=== PATIENT | female | born 1980 | race Caucasian/White ===

== ENCOUNTER 2020-01-01 14:24 | Outpatient (CLI) | payer OTHER, SELFPAY ==
--- NOTE | ~2020-01-01 | XR_ITS ---
EXAMINATION: XR lumbar spine 2-3V EXAM DATE: 01/01/2020 15:01 INDICATION: Low back pain for 5 days. TECHNIQUE: Lumber spine frontal, lateral, lateral L5-S1 projections for interpretation. There is no prior study for comparison. FINDINGS: There is mild lumbar facet arthropathy. The vertebral bodies are aligned in the AP dimensio n. Vertebral body and disc heights are well-maintained. Paraspinal soft tissue is unremarkable. Sacru m, sacroiliac joints, sacral arcuate lines are intact. Possible 4 mm right nephrolithiasis. IMPRESSION: Mild lumbar facet arthropathy. Possible right nephrolithiasis. Reviewed, dictated and finalized at location A.
== END 2020-01-01 14:25 | disposition home or self-care (01) ==
LOC: ANHIMG 14:33
PROVIDERS: PCP Nurse Practitioner Adult Health; Visit Provider Nurse Practitioner Adult Health
DX: M54.5 Low back pain (principal); M12.88 Other specific arthropathies, not elsewhere classified, other specified site
CPT/HCPCS: 72100

== ENCOUNTER 2020-09-15 16:48 | Outpatient (CLI) | payer OTHER, SELFPAY ==
--- NOTE | ~2020-09-15 | MR_ITS ---
EXAMINATION: MR lumbar spine wo con DATE: 09/15/2020 17:31 INDICATION: Arthropathy of lumbar facet joint. Low back pain. TECHNIQUE: Magnetic resonance imaging (MRI) of the lumbar spine was performed without intravenous con trast. Sequences included sagittal T2-weighted FSE, sagittal T2-weighted FS FSE, sagittal T1-weighted FSE, and axial T2-weighted FSE. COMPARISON: Lumbar spine radiographs 01/01/2020 FINDINGS: Bone alignment is normal. Vertebral body heights are normal. There is mildly decreased disc height at L4-L5 with endplate remodeling. The distal spinal cord signal intensity is normal. The con us medullaris is at L1. The following disc levels are specifically discussed: L1-L2: The disc does not extend beyond the endplate margin. There is mild bilateral facet joint osteo arthritis. There is no neural foraminal stenosis. There is no central canal stenosis. L2-L3: There is a central extrusion. There is mild bilateral facet joint osteoarthritis. There is mil d bilateral neural foraminal stenosis. There is mild central canal stenosis. L3-L4: The disc is mildly bulging and has an annular fissure. There is mild bilateral facet joint ost eoarthritis. There is mild bilateral neural foraminal stenosis. There is mild central canal stenosis. L4-L5: The disc is bulging with superimposed right central extrusion with mass effect on right L5 ner ve root in right lateral recess. There is mild bilateral facet joint osteoarthritis. There is mild bi lateral neural foraminal stenosis. There is mild central canal stenosis. L5-S1: The disc is bulging and has an annular fissure. There is mild left facet joint osteoarthritis. There is mild bilateral neural foraminal stenosis. There is mild central canal stenosis. IMPRESSION: 1. Mild lumbar spondylosis. Reviewed, dictated and finalized at location A. ALS RN IMPRESSION: 1. Mild lumbar spondylosis.
== END 2020-09-15 16:49 | disposition home or self-care (01) ==
PROVIDERS: PCP Nurse Practitioner Adult Health; Visit Provider Nurse Practitioner Adult Health
DX: M47.896 Other spondylosis, lumbar region (principal)
CPT/HCPCS: 72148

== ENCOUNTER 2021-02-01 23:11 | Emergency (ER) | payer OTHER, SELFPAY ==
--- NOTE | ~2021-02-01 | CT_ITS ---
EXAMINATION: CT abdomen pelvis wo con DATE: 02/01/2021 23:57 INDICATION: Right flank pain. History of kidney stones. TECHNIQUE: Computed tomography (CT) of the abdomen and pelvis was performed without intravenous contr ast. The dose-length product was 1577.34 mGy-cm. Automated exposure control and iterative reconstruct ion technique were employed. COMPARISON: CT dated 05/19/2018. FINDINGS: Lung bases are unremarkable. Heart size normal. 1.4 cm left breast mass medially, image 5. No significant pleural or pericardial effusion. The liver, spleen, pancreas, adrenal glands and left kidney are unremarkable. There is a 3 mm distal right ureteral stone near the ureterovesical junction . Mild right hydronephrosis. 5 mm nonobstructing right renal stone. Gallbladder is present. Bowel pat tern is nonobstructive. Small fat-containing umbilical hernia. Small hiatal hernia. IMPRESSION: 1. 3 mm distal right ureteral stone near the ureterovesical junction with mild hydronephrosis. 2: Nonobstructing right nephrolithiasis. 3: 1.4 cm left breast mass medially, image 5. Correlation with diagnostic bilateral mammogram and le ft breast ultrasound recommended. Dr. Ronald Lozano discussed with Dr. Alton MD from the emergency room at 02/02/2021 07:42 CDT. Reviewed, dictated and finalized at location A. IMPRESSION: 1. 3 mm distal right ureteral stone near the ureterovesical junction with mild hydronephrosis. 2: Nonobstructing right nephrolithiasis. 3: 1.4 cm left breast mass medially, image 5. Correlation with diagnostic bila teral mammogram and left breast ultrasound recommended. Dr. Ronald Lozano discussed with Dr. Alton MD from the emergency room at 07:42 CDT.
[2021-02-01 23:16] VITALS: BP 151/82; PULSE 53; RESP 18; TEMP 36.7; O2SAT 100
[2021-02-01 23:17] VITALS: BP 151/82; O2SAT 100
[2021-02-01 23:18] VITALS: O2SAT 100
[2021-02-01] MEDS: SODIUM CHLORIDE 0.9% IV 1,000 ML 999 ML IV CONT (23:29)
[2021-02-01] MEDS: ONDANSETRON INJ 4 MG/2 ML VIAL IV PUSH (23:29)
[2021-02-01] MEDS: MORPHINE SULFATE (*CRX) 4 MG/ML INJ IV PUSH (23:29)
--- NOTE | 2021-02-01 23:31 | ED.GENADULT ---
HPI - General Adult General Chief complaint: Urogenital-Female Stated complaint: kidney stone Time Seen by Provider: 02/01/21 23:18 History of Present Illness HPI narrative: Patient 40-year-old female presents emergency department chief complaint of kidney stone. Patient reports that she has history of stones has had a prior stent several years ago on the left side reports that she did MRI several months ago that showed that she had a nonobstructing stone and then suddenly today started having pain in her right flank. Patient states she feels a little nauseated reports that the pain is not improved by anything nor is it worsened by anything. Patient reports this feels similar to whenever she is had stones before in the past. Related Data Home Medications Medication Instructions Recorded Confirmed cetirizine [Zyrtec] mg 02/01/21 Allergies Allergy/AdvReac Type Severity Reaction Status Date / Time metoclopramide Allergy Unknown Anxiety Verified 02/01/21 23:20 NKFA Allergy Unknown Other Uncoded 02/01/21 23:20 Review of Systems Review of Systems: Narrative: A 10 system review of systems was completed on the patient and is negative except for what is stated in the HPI. Nursing and ancillary documentation was reviewed. [facility] Social History Social History Smoking status: Never smoker Alcohol intake: never Comments Past medical history significant for kidney stones Social history patient denies smoking Exam Narrative: Exam Narrative: GENERAL: Well-appearing, well-nourished, and in no acute distress. HEAD: Normocephalic, atraumatic. EYES: PERRLA and EOMI. ENT: Nares clear, no rhinorrhea or epistaxis. Mucous membranes moist. NECK: Supple. CHEST: Clear to auscultation. No respiratory distress. HEART: Regular rate and rhythm. No murmur heard. Normal peripheral pulses. ABDOMEN: Soft, nontender, nondistended, normal active bowel sounds. EXTREMITIES: Normal range of motion. No edema. SKIN: Warm, dry, no rash. NEURO: No focal deficits. Alert and oriented x3. PSYCH: Normal mood and affect. Course Vital Signs Vital signs: Vital Signs Temperature 36.7 C 02/01/21 23:16 Pulse Rate 53 L 02/01/21 23:16 Respiratory Rate 18 02/01/21 23:16 Blood Pressure 151/82 H 02/01/21 23:16 Pulse Oximetry 100 02/01/21 23:16 Temperature 36.7 C 02/01/21 23:16 Pulse Rate 53 L 02/01/21 23:16 Respiratory Rate 18 02/01/21 23:16 Blood Pressure 121/107 H 02/02/21 00:02 Pulse Oximetry 100 02/02/21 00:02 Medical Decision Making Vital Signs Vital Signs: Vital Signs Temperature 36.7 C 02/01/21 23:16 Pulse Rate 53 L 02/01/21 23:16 Respiratory Rate 18 02/01/21 23:16 Blood Pressure 151/82 H 02/01/21 23:16 Pulse Oximetry 100 02/01/21 23:16 Temperature 36.7 C 02/01/21 23:16 Pulse Rate 53 L 02/01/21 23:16 Respiratory Rate 18 02/01/21 23:16 Blood Pressure 121/107 H 02/02/21 00:02 Pulse Oximetry 100 02/02/21 00:02 Lab Data Result diagrams: 02/01/21 23:31 02/01/21 23:31 Labs: Lab Results 02/01/21 02/01/21 02/01/21 Range/Units 23:31 23:31 23:31 WBC 10.6 H (4.5-10.0) K/mm3 RBC 4.34 (4.2-5.4) M/mm3 Hgb 12.4 (12.0-15.0) g/dL Hct 39.0 (37.0-47.0) % MCV 89.9 (80-100) fl MCH 28.6 (26-34) pg MCHC 31.8 L (32-36) g/dl RDW 12.5 (11.5-14.5) % Plt Count 284 (150-375) k/mm3 MPV 10.2 (7.4-10.4) fl Immature Gran % (Auto) 0.4 (0-0.5) % Neut % (Auto) 73.7 H (45.5-73.1) % Lymph % (Auto) 17.8 L (18.3-44.2) % Harper % (Auto) 5.6 (2.6-8.5) % Eos % (Auto) 2.2 (0-4.4) % Baso % (Auto) 0.3 (0.2-1.2) % Lymph # (Auto) 1.89 (0.9-3.2) K/mm3 Harper # (Auto) 0.6 (0.1-0.6) K/mm3 Eos # (Auto) 0.2 (0-0.3) K/mm3 Baso # (Auto) 0.0 (0.0-0.1) K/mm3 Abs Immat Gran (auto) 0.04 H (0.00-0.031) K/mm3 Absolute
[2021-02-01 23:33] VITALS: O2SAT 100
[2021-02-01 23:39] LABS: Basophils Percent Auto 0.3 % (0.2-1.2); Eosinophils Absolute Auto 0.2 K/mm3 (0-0.3); Eosinophils Percent Auto 2.2 % (0-4.4); Hemoglobin 12.4 g/dL (12.0-15.0); Immature Granulocyte Absolute 0.04 K/mm3 (0.00-0.031); Immature Granulocyte Percent A 0.4 % (0-0.5); Lymphocytes Absolute Auto 1.89 K/mm3 (0.9-3.2); Lymphocytes Percent Auto 17.8 % (18.3-44.2); Mean Corpuscular HGB Conc 31.8 g/dl (32-36); Mean Corpuscular Hemoglobin 28.6 pg (26-34); Mean Corpuscular Volume 89.9 fl (80-100); Mean Platelet Volume 10.2 fl (7.4-10.4); Monocytes Absolute Auto 0.6 K/mm3 (0.1-0.6); Monocytes Percent Auto 5.6 % (2.6-8.5); Neutrophils Absolute Auto 7.9 K/mm3 (1.3-6.7); Neutrophils Percent Auto 73.7 % (45.5-73.1); Platelet Count Result 284 k/mm3 (150-375); Red Blood Count 4.34 M/mm3 (4.2-5.4); Red Cell Distribution Width 12.5 % (11.5-14.5); White Blood Count 10.6 K/mm3 (4.5-10.0)
[2021-02-01 23:43] LABS: Add Urine Microscopic? YES; Appearance Urine Cloudy (Clear); Bacteria Urine Trace /hpf; Bilirubin Urine Negative (Negative); Blood Urine 3+ (Negative); Color Urine Yellow (Yellow); Glucose Urine UA Negative (Negative); Ketones Urine Negative (Negative); Leukocyte Esterase Ur 1+ LEU/UL (Negative); Mucus Urine Rare /lpf; Nitrate Urine Negative (Negative); Protein Urine Negative (Negative); RBC Urine >75 /hpf (0-2); Specific Grav Ur 1.023 (1.001-1.035); Squamous Epithelial Cell Urine Many /hpf (Few); Urobilinogen Urine Negative mg/dL (<2.0)
--- NOTE | 2021-02-01 23:44 | PC.NURSE ---
Patient taken to CT via stretcher.
[2021-02-01 23:53] LABS: Alanine Aminotransferase 28 U/L (4-35); Albumin Level 4.3 g/dL (3.5-5.1); Alkaline Phosphatase 80 U/L (38-126); Anion Gap 9 mmol/L (8-16); Aspartate Amino Transferase 30 U/L (14-36); Bilirubin,Total 0.3 mg/dL (0.2-1.3); Blood Urea Nitrogen 13 mg/dL (7-17); Calcium 9.1 mg/dL (8.4-10.2); Carbon Dioxide 28 mmol/L (22-30); Chloride 103 mmol/L (98-107); Estimated CRCL calculation 97 ml/min; Estimated Glomerular Filt Rate > 60; Glucose 138 mg/dL (65-105); Lipase 79 U/L (23-300); Potassium 3.8 mmol/L (3.4-5.0); Sodium 140 mmol/L (137-145)
[2021-02-01 23:59] VITALS: O2SAT 100
[2021-02-02] VITALS: BP 158/106; O2SAT 100
[2021-02-02 00:01] VITALS: O2SAT 98
[2021-02-02 00:02] VITALS: BP 121/107; O2SAT 100
[2021-02-02] MEDS: HYDROmorphone HCL INJ (*CRX) 1 MG/ML SYR IV PUSH (00:12)
[2021-02-02] MEDS: ONDANSETRON INJ 4 MG/2 ML VIAL IV PUSH (00:12)
[2021-02-02] MEDS: KETOROLAC 30 MG/ML VIAL (*BKC) IV PUSH (00:40)
--- NOTE | 2021-02-02 00:46 | PC.NURSE ---
At time of discharge, 400mL of NS bolus infused. EDP made aware, okay to discharge.
[2021-02-02 00:52] VITALS: BP 150/104; PULSE 58; RESP 16; O2SAT 99
== END 2021-02-02 00:52 | disposition home or self-care (01) ==
PROVIDERS: Emergency Provider Emergency Medicine; PCP Nurse Practitioner Adult Health
DX: N20.0 Calculus of kidney (principal)
CPT/HCPCS: 36415; 74176; 80053; 81001; 81025; 83690; 85025; 96361; 96374; 96375; 99284; J1170; J1885; J2270; J2405; J7030

== ENCOUNTER 2021-02-11 12:40 | Outpatient (CLI) | payer OTHER, SELFPAY ==
--- NOTE | ~2021-02-11 | MMUS_ITS ---
EXAMINATION: MM diagnostic desire LT w dalia, US breast LT complete HISTORY: 1.4 cm mass reported medially in left breast on 02/01/2021 CT abdomen pelvis examination TECHNIQUE: ML, MLO and craniocaudal 3-D tomosynthesis images of the left breast were performed and sy nthetic 2-D images were generated. . CAD analysis was submitted and interpreted. High resolution comp lete left breast ultrasound was performed. COMPARISON: 02/01/2021 CT abdomen pelvis BREAST PARENCHYMAL COMPOSITION: There are scattered areas of fibroglandular density. FINDINGS: MAMMOGRAPHIC FINDINGS: No suspicious mass, architectural distortion, malignant calcification, skin thickening or retraction is evident. ULTRASOUND: No suspicious mass or shadowing is evident. 1;00 4 cm from nipple: 6.6 x 5.5 x 4.7 mm circumscribed parallel solid probably benign mass without i nternal vascularity or posterior shadowing 2:00 5 cm from nipple: 5 mm cyst 2:00 11 cm from nipple: 2 x 3 x 4 mm hypoechoic lesion, parallel, without internal vascularity or neelima picious shadowing 4:00 8 cm from nipple: 1.4 x 3.2 x 2.1 mm sonolucency, benign in appearance 11:00 12 cm from nipple: probable benign 3.3 x 6.9 mm lymph node with fatty hilum IMPRESSION: 1. Probably benign findings 2. 6 month diagnostic left mammogram and left breast ultrasound follow-up are recommended BI-RADS category 3, probably benign findings. Reviewed, dictated and finalized at location A. IMPRESSION: 1. Probably benign findings 2. 6 month diagnostic left mammogram and left breast ultrasound follow-up are r ecommended BI-RADS category 3, probably benign findings.
== END 2021-02-11 12:41 | disposition home or self-care (01) ==
LOC: ANHIMG 12:42
PROVIDERS: PCP Nurse Practitioner Adult Health; Visit Provider Nurse Practitioner Adult Health
DX: N63.20 Unspecified lump in the left breast, unspecified quadrant (principal); R92.8 Other abnormal and inconclusive findings on diagnostic imaging of breast
CPT/HCPCS: 76641; 77061; 77065; G0279

== ENCOUNTER 2021-02-13 15:25 | Outpatient (CLI) | payer OTHER, SELFPAY ==
--- NOTE | ~2021-02-13 | XR_ITS ---
EXAMINATION: XR abdomen/kub 1V DATE: 02/13/2021 15:44 INDICATION: Kidney stone. TECHNIQUE: A supine view of the abdomen on 2 radiographs was obtained. COMPARISON: Abdomen radiographs 03/11/2006, CT abdomen and pelvis 02/01/2021 FINDINGS: There are no dilated loops of bowel. There is a 3 mm stone in right kidney. IMPRESSION: 1. 3 mm stone in right kidney. Reviewed, dictated and finalized at location A.
== END 2021-02-13 15:26 | disposition home or self-care (01) ==
LOC: ANHIMG 15:26
PROVIDERS: PCP Nurse Practitioner Adult Health; Visit Provider Nurse Practitioner Adult Health
DX: N20.0 Calculus of kidney (principal)
CPT/HCPCS: 74018

== ENCOUNTER 2021-03-12 15:09 | Outpatient (CLI) | payer OTHER, SELFPAY ==
[2021-03-12 16:13] LABS: INR 0.9; Prothrombin Time 11.9 Seconds (11.1-14.7)
[2021-03-12 16:14] LABS: Partial Thromboplastin Time 32.2 SECONDS (22.3-36.8)
[2021-03-12 16:39] LABS: Beta HCG Quantitative < 2.39 mIU/ML
== END 2021-03-12 15:10 | disposition home or self-care (01) ==
PROVIDERS: PCP Nurse Practitioner Adult Health; Visit Provider Urology
DX: N20.0 Calculus of kidney (principal); Z01.818 Encounter for other preprocedural examination
CPT/HCPCS: 36415; 84702; 85610; 85730; 87086

== ENCOUNTER 2021-03-13 02:32 | Day surgery (SDC) | payer OTHER, SELFPAY ==
[2021-03-11 16:12] VITALS: BMI 46.5
[2021-03-13] VITALS (8 sets, daily range): BP systolic 117–135; BP diastolic 57–78; PULSE 65–98; RESP 16–24; TEMP 36.7–36.8; O2SAT 95–98
--- NOTE | ~2021-03-13 | XR_ITS ---
EXAMINATION: XR abdomen/kub 1V INDICATION: Urolithiasis TECHNIQUE: Supine views of the abdomen were obtained on 2 radiographs. COMPARISON: 02/13/2021 FINDINGS: Bowel contents project over the kidneys limiting sensitivity for renal stones. There is a q uestionable 5 mm stone projecting over the right L5 transverse process. The bowel gas pattern is norm al. IMPRESSION: 1. Possible right ureteral stone. Reviewed, dictated and finalized at location B.
--- NOTE | ~2021-03-13 | CT_ITS ---
EXAMINATION: CT abdomen pelvis wo con DATE: 03/13/2021 09:59 INDICATION: Right ureteral stone TECHNIQUE: Computed tomography (CT) of the abdomen and pelvis was performed without intravenous contr ast. Automated exposure control and iterative reconstruction technique were employed. The dose-length product was 1146.38 mGy-cm. COMPARISON: CT dated 02/01/2021 and KUB dated 03/13/2021 FINDINGS: Lung bases are clear. Heart size is normal. No pericardial or pleural effusion. Liver, gallbladder, s pleen, pancreas and left kidney are normal. Unchanged 3 mm and 1 mm stones at lower pole calyces of t he right kidney. A prior 3 mm stone in the distal right ureter has passed with resolution of prior mi ld hydroureteronephrosis. The calcifications projecting near the right transverse process of L5 on th e KUB vessel associated phleboliths versus atherosclerotic calcification. No stones seen along either the left or right ureters. Bladder is normal. Anteverted uterus and bilateral adnexa are unremarkabl e. Suture line at the tip the cecum likely related to prior appendectomy. Bowels are otherwise normal with no wall thickening or obstruction. No free intraperitoneal gas or fluid. No pathologically enla rged abdominal or pelvic lymphadenopathy. Bones are unremarkable. IMPRESSION: 1. Interval passage of a prior distal right ureteral stone with resolution of prior mild right hydrou reteronephrosis. 2. A couple additional 1 mm and 3 mm stones at lower pole calyces of the right kidney. Reviewed, dictated and finalized at location A. IMPRESSION: 1. Interval passage of a prior distal right ureteral stone with resolution of p rior mild right hydroureteronephrosis. 2. A couple additional 1 mm and 3 mm stones at lower pole calyces of the right kidney.
--- NOTE | 2021-03-13 09:48 | SUR.PREOP ---
[id number] SPOKE WITH PT, URINE SAPMLE TO BE SENT, CT ORDERED
[2021-03-13 09:58] LABS: Add Urine Microscopic? YES; Appearance Urine Clear (Clear); Bilirubin Urine Negative (Negative); Blood Urine 1+ (Negative); Color Urine Straw (Yellow); Glucose Urine UA Negative (Negative); Ketones Urine Negative (Negative); Leukocyte Esterase Ur 3+ LEU/UL (NEGATIVE); Mucus Urine Rare /lpf; Nitrate Urine Negative (Negative); Protein Urine Negative (Negative); Specific Grav Ur 1.014 (1.001-1.035); Squamous Epithelial Cell Urine Many /hpf (Few); Urobilinogen Urine Negative mg/dL (<2.0); WBC Urine 0-3 /hpf (0-3)
[2021-03-13] MEDS: LACTATED RINGERS 1,000 ML 30 ML IV CONT (10:11)
--- NOTE | 2021-03-13 10:24 | WPDHPUPDATE1 ---
History and Physical Update Update Date/Time: 03/13/21 10:24 History and Physical has been reviewed, including an updated exam of the patient. There are NO changes in the patient's condition. Risks, benefits, and alternatives have been discussed and questions answered. Patient agrees to proceed with procedure. Proceed with right renal eswl
--- NOTE | 2021-03-13 10:43 | WPDANESEPPF ---
Anes - Initial Pre Proc Eval Procedure: Operation Date: 03/13/21 11:00 Proposed Procedures p Right Renal Extracorporeal Shock Wave Lithotripsy - Jacob Park MD Date/Time: 03/13/21 10:43 Surgeon: Jacob Park MD Pre Op Diagnosis: right renal stones Patient Data Age: 40 Gender: F Height: 1.65 m Weight: 126.1 kg Last Vital Signs Temp 36.7 C 03/13/21 09:44 Pulse 72 03/13/21 09:44 Resp 18 03/13/21 09:44 BP 135/78 03/13/21 09:44 Pulse Ox 98 03/13/21 09:44 Allergies Allergy/AdvReac Type Severity Reaction Status Date / Time metoclopramide Allergy Unknown Anxiety Verified 03/13/21 09:43 Home Medications Medication Instructions Recorded Confirmed Type cetirizine [Zyrtec] 10 mg PO DAILY 02/01/21 03/13/21 History Laboratory Tests 03/13/21 09:26 Urine Color Straw (Yellow) Urine Appearance Clear (Clear) Urine pH 6.0 (5.0-9.0) Ur Specific [place] 1.014 (1.001-1.035) Urine Protein Negative mg/dL mg/dL (Negative) Urine Glucose (UA) Negative mg/dL mg/dL (Negative) Urine Ketones Negative mg/dL mg/dL (Negative) Ur Blood (Man) 1+ H (Negative) Urine Nitrate Negative (Negative) Urine Bilirubin Negative (Negative) Urine Urobilinogen Negative mg/dL mg/dL (<2.0) Ur Leukocyte Esterase 3+ RICH/UL H RICH/UL (NEGATIVE) Urine RBC 3-5 /hpf H /hpf (0-2) Urine WBC 0-3 /hpf /hpf (0-3) Ur Squamous Epith Cells Many /hpf H /hpf (Few) Urine Mucus Rare /lpf /lpf Patient hx anesthesia problems: none Family hx anesthesia problems: none PMFSH Past Medical History Medical History Eczema Morbid obesity Social History Social History Smoking status: Never smoker Alcohol intake: never Living arrangements: with family Spiritual care concerns: No Anes - Eval Final PreProcedure Day of Procedure 03/13/21 10:43 Patient weight: morbidly obese Heart: regular rate and rhythm Lungs: clear to auscultation Airway: Mallampati scale class II Neurological: alert and oriented Last oral intake: >/= 8 hours ASA classification: III Emergent: no Anesthetic plan: proceed Anesthesia type and monitoring: general LMA and standard monitoring Informed Consent: The patient's anesthetic plan and its attendant risks and benefits were discussed with the patient/family/POA. Questions were solicited and answers provided to the satisfaction of the patient/family/POA.
[2021-03-13] MEDS: ceFAZolin 3 GM/D5W 100 ML 100 ML IVPB (10:47)
--- NOTE | 2021-03-13 11:21 | P.OP_ITS ---
Procedure Note - Detailed Date of Procedure 03/13/21 Pre-op Diagnosis right renal stones Post-op Diagnosis same Procedure Performed ESWL of right renal calculus Surgeon Jacob Park MD Anesthesia general Description of Procedure patient was taken the operative suite and correctly identified. Once ane sthesia was obtained the stone was localized in both planes. Two thousand five hundred shocks were given to the stone. There appeared be good fragmentation. Patient was taken recovery room in stable condition. She will follow up in about 10 days with KUB Drains No Packing No Pathology none sent Complications No immediate complications Condition stable Disposition PACU
== END 2021-03-13 13:28 | disposition home or self-care (01) ==
PROVIDERS: PCP Nurse Practitioner Adult Health; Visit Provider Urology
PROC: (CPT 50590; principal; 2021-03-13 11:00)
DX: N20.0 Calculus of kidney (principal); L30.9 Dermatitis, unspecified; E66.01 Morbid (severe) obesity due to excess calories; Z68.42 Body mass index [BMI] 45.0-49.9, adult
CPT/HCPCS: 50590; 36415; 74018; 74176; 81001; 84702; 85610; 85730; 87086; 87088; J0690; J1100; J1170; J2250; J2405; J2704; J3010; J7120